=== PATIENT | female | born 1970 | race Caucasian/White ===

== ENCOUNTER 2016-04-03 04:42 | Inpatient (IN) | payer OTHER ==
[~2016-04-03] VITALS: Ht 170.2 cm; Wt 145.2 kg
[~2016-04-03 04:42] MED LIST: LORAZEPAM0.5 M1 PO; NASONEX0.05 MG/Ac NAS; PROTONIX40 M3 PO; ROBITUSSIN W/CO10 ML PO; TESSALON PERLE100 MG PO; TRAMADOL50 MG PO
--- NOTE | 2016-04-03 10:09 | Admission Core Measures ---
Admission Meds I reviewed the following Meds: Current Medications Sig/Sanna Start time Last Medication Dose Stop Time Status Admin Cefazolin Sodium 3,000 MG ONCE 04/03 NR (Kefzol-Ancef Inj) 04/03 2358 Dexamethasone 10 MG ONCE 04/03 NR (Decadron 10MG/Ml 04/03 2358 Sdv) Dextrose/Water 50 ML (Dextrose 5%) Heparin Sodium 5,000 UNIT ONCE 04/03 NR (Porcine) 04/03 2358 Metronidazole 500 MG ONCE 04/03 NR (Flagyl) 04/03 2358 Sodium Chloride 100 ML (Normal Saline 0.9%) Acute Coronary Syndrome Inclusion Criteria ACS Diagnosis No Inpatient Core Measures LDL Reminder: If No, please order W/I first 24hr of stay Congestive Heart Failure Inclusion Criteria CHF Diagnosis No Cerebrovascular accident Inclusion Criteria CVA/TIA Diagnosis No Inpatient Core Measures Bedside Swallow Eval Reminder: If BSE failed, place ST order Antithrombotic Reminder: Order Antithrombotic Medication by end of day 2 Antithrombotic Reminder: Document Reason Antithrombotic Not ordered by end of day 2 AFIB/Flutter Reminder: If Present, add to problem list AFIB/Flutter Reminder: Order Anticoag Medication for pts with AFIB/Flutter Atherosclerosis Reminder: If Present, add to problem list LDL Reminder: If No, please order W/I first 24hr of stay PT Order Reminder: If No, please order Venous thromboembolism Inpatient Core Measures VTE Risk Factors: Age > 40, Obesity, Surgery VTE Prophylaxis Ordered Inpt Mech & Pharm No Mech VTE prophylaxis d/t No contraindications No VTE Pharm Prophylaxis d/t No contraindications Inclusion Criteria - Per Current guidelines, there needs to be overlap - treatment for the first 5 days of Warfarin therapy. - Parenteral Anticoagulation (IV or SC) needs to be - given along with Warfarin therapy. VTE Diagnosis No VTE Type NONE VTE Confirmed by (Test) NONE Problem List As ranked by this Provider includes Assessment & Plan 1. S/P gastric bypass HOME MEDS Home Med List Lorazepam 0.5 MG TABLET 1 TAB PO TID PRN ANXIETY (Reported) Pantoprazole Sodium (Protonix) 40 MG TABLET.DR 1 TAB PO DAILY GERD (Reported)
--- NOTE | 2016-04-03 10:32 | Operative Report ---
Operative/Inv Procedure Report Surgery Date: 04/03/16 Name of Procedure: Laparoscopic Agustin-en-Y gastric bypass and laparoscopic hiatal hernia repair Pre-Operative Diagnosis: Morbid obesity, gastroesophageal reflux Post-Operative Diagnosis: Same Estimated Blood Loss: less than 50ml Surgeon/Securities Teller: MAL [facility]ILLEDA[facility] Anesthesia: general endotracheal tube, block IV Fluids: LR Implants: none Urine Output: n/a Drains: none Specimens: none Complications: none Condition: stable Operative Indication: see admission Hand P Operative/Procedure Note Note: After informed consent and proper identification the patient was taken to the operating room and placed on the operating room table in the supine position Venodyne stockings were applied she underwent a general endotracheal anesthetic. Anesthesia administered a Samia block. The abdomen was then prepped and draped in normal sterile fashion using a completely an Optiview 10 mm trocar and a 0 Stortz laparoscope we entered the abdominal cavity without difficulty dissecting through the muscle layers through the peritoneum into the abdominal cavity. We insufflated with 14 mm of CO2 pressure. Next we placed additional trochars 25 mm trochars in each of the subcostal margins additional 5 mm trocar in the left mid abdomen 12 mm trocar in the right midabdomen and a Hira liver retractor in the upper midline to retract the left lobe of the liver. The upper portion of the stomach and the fat pad were in the chest there is approximately a 2 cm defect at the hiatus. We felt that we should repair this hiatal hernia. We began dissecting using a Sonicision Scalpel Taking down the Gastrohepatic Ligament All the Way up to the Top of the Left Ashley. We dissected underneath the esophagus elevating the esophagus and the right posterior vagus nerve. We took down attachments of the hernia sac all the way up into the chest. We then dissected along the left ashley all the way up to the top of the hiatus. We pulled approximately 3 cm of intra-abdominal esophagus into the abdominal cavity dissecting the adhesions away so that there was no more retraction of the stomach into the chest. We could clearly see the left and right ashley while elevating the esophagus with a retractor. We repaired the ashley with a single [id number] 2-0 Tycron suture and then an interrupted 2-0 Tycron suture. We had anesthesia decompress the stomach with an orogastric tube and then remove the orogastric tube. After approximately a third gastric vein on the lesser curvature we dissected retrogastric and then began to create the pouch using a Endo EDNA purple 60 stapler with seam guard stapling transversely across the stomach and the retrogastric space we dissected up towards the angle of Hiss we fired 2 additional 60 cm staplers without seam guard and one additional 45 stapler to create the pouch anesthesia now placed in Clementine tube in the pouch. We then turned our attention to the greater omentum and retracted it as well as the transverse colon identified the ligament of Treitz. We ran the small bowel 50 cm from the ligament of Treitz and made a window in the mesentery with the Sonicision Scalpel We Stapled across the Bowel Using a 60 Cm Nassar Load Endo EDNA Stapler. We Marked the Proximal Biliopancreatic Limb with 2 10 mm clips Next we divided the greater omentum with the Sonicision Scalpel. We brought the Agustin limb up to the pouch admitting opening of the pouch and in the small bowel approximately 5 cm from the and and performed a side to side him anastomosis between the Agustin limb and the gastric pouch using a Endo EDNA 45 can load stapler make an anastomosis approximately 30 cm long. We had anesthesia pass a Clementine tube across the anastomosis. We sewed the anastomosis closed using a running 23 cm 2-0 Vicryl suture in 2 layers. We tested the anastomosis by clamping the bowel on injecting first air submerged in saline and methylene blue. There was no evidence of a leak. We had anesthesia remove the wall tube. This point we ran the Agustin limb 120 cm and performed a side to side anastomosis between the Agustin limb and the biliopancreatic limb with an Endo EDNA 60 nassar load stapler. We closed the opening by placing 3 retraction sutures of 3-0 silk and then fired a Endo EDNA 60 nassar load stapler across opening were careful not to narrow the proximal small bowel. There is a little bit of bleeding on the staple line for which we placed 210 mm clips. We now closed the mesenteric defect of the jejunojejunostomy with interrupted [id number] 2-0 Tycron sutures. Inspected the abdominal cavity there is no bleeding we placed 1 sponge into the abdominal cavity which was removed the end of the case sponge and instrument counts were correct we removed a Hira liver retractor and all trochars under direct visualization. Patient tolerated the procedure without complications was extubated and taken the recovery room in stable condition Findings: Moderate size hiatal hernia with upper portion of stomach and fat pad in chest, smoothe glistening liver Discharge Disposition: PACU
--- NOTE | 2016-04-03 12:36 | PN- Bariatrics ---
Subjective Subjective: The patient was seen this afternoon postoperatively. She reports the pain is under adequate control and she is without nausea. She denies any chest pain, palpitations, or difficulty breathing. Objective Vital Signs and I&Os Vital signs: Blood pressure 160/70, pulse 76, O2 saturation 94% on room air, temperature 98.2 I's and O's: 2200 ML's in of lactated ringer/due to void/EBL minimal Physical Exam: Gen.: Alert and obvious distress Skin: Warm and dry Cardiac: S1-S2 regular Pulmonary: Bilateral breath sounds are equal and decreased at bases Abdomen: Soft, obese, appropriate incisional tenderness, bowel sounds positive. Port sites are clean, dry, and intact. Extremities: Bilateral lower extremities are warm without calf tenderness or significant edema. Assessment/Plan Assessment/Plan Assessment: [age] female status post laparoscopic gastric bypass. Postoperatively the patient is progressing as expected and her pain was under adequate control. Plan: Bariatric stage I diet until midnight. Then the patient will be kept nothing by mouth for an upper GI in the morning IV hydration Continue current pain regiment 2 doses of postoperative prophylactic antibiotics GI and DVT prophylaxis Out of bed ambulate TRC and patient to continue her home CPAP Follow-up morning laboratory studies Resume home medications Core Measures/Miscellaneous Venous Thromboembolism VTE Risk Factors: Age > 40, Obesity, Surgery VTE Contraindications: No Contraindications VTE Prophylaxis Ordered Inpt: Mech & Pharm VTE Diagnosis: No VTE Type: NONE VTE Confirmed by (Test): NONE Beta Ismael Is Beta Ismael a Home Med? No Antibiotics Is Patient on Antibiotics? Yes If Yes: prophylaxis
[2016-04-03] MEDS ORDERED: HYCET 7.5 MG-3473 ML PO (13:03)
[2016-04-03] MEDS ORDERED: LOVENOX40 MG/0.1 SC (13:05)
--- NOTE | 2016-04-03 13:14 | Patient Discharge Instructions ---
Discharge Instructions General Discharge Information You were seen/treated for: Morbid Obesity You had these procedures: Laparoscopic gastric bypass Watch for these problems: Significantly increased pain, nausea, or temperatures Increased redness or drainage from incisions Chest pain or difficulty breathing No bath, but you may shower: Yes Special Instructions: See printed information booklet Ambulate frequently May use Gas-X for gas pain Diet Recommended Diet: Bariatric Activity Activity Self Limited: Yes Pounds, do NOT lift more than: 10 Acute Coronary Syndrome Inclusion Criteria At DC or during hospital stay patient has or had the following: ACS DIAGNOSIS No Discharge Core Measures Meds if any: Prescribed or Continued at Discharge Meds if any: NOT Prescribed or Continued at Discharge Congestive Heart Failure Inclusion Criteria At DC or during hospital stay patient has or had the following: CHF DIAGNOSIS No Discharge Core Measures Meds if any: Prescribed or Continued at Discharge Meds if any: NOT Prescribed or Continued at Discharge Cerebrovascular accident Inclusion Criteria At DC or during hospital stay patient has or had the following: CVA/TIA Diagnosis No Discharge Core Measures Meds if any: Prescribed or Continued at Discharge Meds if any: NOT Prescribed or Continued at Discharge Venous thromboembolism Inclusion Criteria VTE Diagnosis No VTE Type NONE VTE Confirmed by (Test) NONE Discharge Core Measures - Per Current guidelines, there needs to be overlap - treatment for the first 5 days of Warfarin therapy. - If discharged on Warfarin prior to 5 days of - overlap therapy, the patient will need to be - assessed for post discharge needs including - *Post discharge parental anticoagulation - *Warfarin and/or parental anticoagulation education - *Follow up date to check INR post discharge At least 5 days overlap therapy as Inpatient No Meds if any: Prescribed or Continued at Discharge Note: Overlap Therapy is Warfarin and Anticoagulant Meds if any: NOT Prescribed or Continued at Discharge
--- NOTE | 2016-04-03 13:16 | Surg Short-stay <48hrs Dis Sum ---
Visit Information Visit Dates Admission Date: 04/03/16 Discharge Date: 04/05/16 Surgical Short Stay DC Summary Admission Diagnosis: Morbid obesity Final Diagnosis: Same Procedure(s): Laparoscopic gastric bypass and hiatal hernia repair Summary/Significant Findings: The patient was noted on 04/03/2016. Later that they she is brought to the operating theater and underwent a laparoscopic gastric bypass with hiatal hernia repair. Postoperative the patient progressed as expected, her pain is under adequate control, and she was tolerating a stage I diet without nausea. The patient was discharged with an uneventful hospital course. Condition at Discharge: Stable Discharge Disposition: home or self care Discharge instructions provided to patient/family: Yes Post discharge follow-up plan: Call the office to be seen in one week
[2016-04-03 14:00] VITALS: BP 128/78
--- NOTE | 2016-04-03 16:02 | NUR ---
NURSING NOTE: PT ARRIVED TO FLOOR VIA STRETCHER AT 1351. PT A&O, VSS CHARTED. PT AMULATED AROUND 2NA&B INDEPENDENTLY. 6 DRESING SITES NOTED, 1 SITE IN LUQ HAS SCANT AMOUNT OF BLOODY DRAINAGE. PT EDUCATED ON DIET. LOG AT BEDSIDE. WILL CONTINUE TO MONITOR.
[2016-04-03 16:35] VITALS: BP 118/86
[2016-04-03 20:00] VITALS: BP 120/85
--- NOTE | 2016-04-03 23:04 | NUR ---
ALERT AND ORIENTED X 3. VITAL SIGNS STABLE. PATIENT USING BIPAP. PATIENT AMBULATING WELL AROUND THE FLOOR. MEDICATION GIVEN FOR PAIN DSGS ARE CLEAN, DRY AND INTACT. PATIENT TAUGHT ABOUT INCENTIVE SPIROMETER USE WILL CONTINUE TO MONITOR
[2016-04-04] VITALS: BP 128/88
--- NOTE | 2016-04-04 07:50 | PN- Bariatrics ---
Subjective Subjective: Reports expected gas related pain. Ambulating well. No dizziness. No shortness of breath. She wore her cpap overnight. Currently npo awaiting upper gi study. Voiding well. Not passing flatus yet. Objective Vital Signs and I&Os Vital Signs Date Time Temp Pulse Resp B/P Pulse O2 O2 Flow FiO2 Ox Delivery Rate 04/04 0600 Room Air 04/04 0000 Room Air 04/04 0000 98.0 76 20 128/88 99 Room Air 04/03 2000 96 BIPAP 04/03 2000 74 20 120/85 96 BIPAP 04/03 1808 Room Air Room Air 04/03 1800 96 BIPAP 04/03 1635 98.4 87 18 118/86 99 Room Air 04/03 1600 99 Room Air 04/03 1400 96 Room Air Room Air 04/03 1400 96 Room Air Room Air 04/03 1400 98.0 88 18 128/78 96 Room Air Room Air Intake & Output 04/04 0800 02/ 0000 02/06 1600 /06 0800 04/03 0000 / 1600 Intake Total 1000 135 185 Output Total 950 Balance 1000 -815 185 Intake, IV 1000 125 Intake, Oral 135 60 Output, Urine 950 Patient 320 lb Weight Physical Exam: General - alert & oriented x 3. comfortable. Lungs - clear bilaterally. no w/r/r. Cardiac - s1s2. reg. Abdomen - soft. dressings c/d/i. expected carlos a-incisional tenderness. no drains. Extremities - warm bilaterally. no c/c/e. calves soft and nontender b/l. athrombics in place. Assessment/Plan Assessment/Plan This 45 year old white female with hx morbid obesity, gerd, breanne, anxiety, who is POD#1 s/p lap gastric bypass, hiatal hernia repair currently npo / ivf. f/u upper gi study f/u labs pain control as ordered carlos a-operative antibiotics completed lovenox - dvt ppx lovenox teaching for home oob/ambulation will d/w Core Measures/Miscellaneous Venous Thromboembolism VTE Risk Factors: Age > 40, Obesity, Surgery VTE Contraindications: No Contraindications VTE Prophylaxis Ordered Inpt: Mech & Pharm VTE Diagnosis: No VTE Type: NONE VTE Confirmed by (Test): NONE Beta Ismael Is Beta Ismael a Home Med? No Antibiotics Is Patient on Antibiotics? Yes If Yes: prophylaxis
[2016-04-04 07:57] LABS: ABSOLUTE BASOPHIL COUNT 0 /CUMM (0.0-0.2); ABSOLUTE EOSINOPHIL COUNT 0 /CUMM (0.0-0.7); ABSOLUTE GRANULOCYTE CT 7.7 /CUMM (1.4-6.5); ABSOLUTE LYMPH COUNT 1.6 /CUMM (1.2-3.4); ABSOLUTE MONOCYTE COUNT 0.6 /CUMM (0.10-0.60); BASOPHIL % 0.4 % (0.0-2.0); EOSINOPHIL % 0.2 % (0-5); GRANULOCYTE % 77.8 % (42.2-75.2); HEMATOCRIT 35.5 % (37-47); MEAN CORPUSCULAR HGB 28.9 PG (27.0-31.0); MEAN CORPUSCULAR HGB CONC 33.8 G/DL (33.0-37.0); MEAN CORPUSCULAR VOLUME 85.4 FL (81.0-99.0); MEAN PLATELET VOLUME 8.5 FL (7.4-10.4); PLATELET COUNT 232 /CUMM (130-400); RED BLOOD CELL CT 4.15 /CUMM (4.20-5.40); WHITE BLOOD CELL COUNT 9.9 /CUMM (4.8-10.8)
[2016-04-04 08:09] VITALS: BP 124/70
--- NOTE | 2016-04-04 12:46 | RADIOLOGY REPORT ---
EXAMINATION: FL UPPER GI SERIES CLINICAL INFORMATION: Status post gastric bypass. Followup study. COMPARISON: None. TECHNIQUE: Two AP merchandise adjustment clerk views of the abdomen are obtained. A water-soluble contrast upper GI series with fluoroscopy and spot imaging was performed. The patient ingested water-soluble contrast without difficulty and was evaluated in the upright position. FINDINGS: The preliminary films are unremarkable. There is normal esophageal mucosa and motility. The gastric bypass changes are noted. There is a small gastric pouch. There is immediate emptying into the small bowel. There is no evidence of extravasation or obstruction. FLUOROSCOPY TIME: 36 seconds. IMPRESSION: No evidence of extravasation or obstruction.
[2016-04-04 16:12] VITALS: BP 130/70
--- NOTE | 2016-04-04 23:59 | NUR ---
NURSING NOTE; LATE ENTRY; AROUND 2300 PT CALLED THIS RN INTO ROOM COMPLAINING OF PAIN TO IV SITE. IV INFILTRATED AND PULLED. PT SAID "I DO NOT WANT ANOTHER IV" THIS RN CALLED SURGICAL PA #[id number] AND MADE HIM AWARE AND SURGICAL PA SAID PT SHOULD HAVE IV ACCESS. THIS RN EDUCATED PT ON IMPORTANCE OF IV ACCESS. PT AGREED TO HAVE IV PUT IN. THREE DIFFERENT RNS TRIED TO PUT IV IN. PT REFUSING IV. SURGICAL PA AWARE. NEXT SHIFT RN MADE AWARE. WILL CONTINUE TO MONITOR.
[2016-04-05 00:34] VITALS: BP 127/76
--- NOTE | 2016-04-05 01:02 | NUR ---
PT REPORTED PAIN ACROSS TOP OF CHEST AND DIAPHRAGM. VITALS ARE STABLE, PT DOES NOT APPEAR TO BE IN ANY ACUTE DISTRESS. SHE REPORTS SHE HAS HAD THIS PAIN SINCE HER SURGERY BUT WAS NOT SURE IF SHE HAD MENTIONED IT TO ANYONE. KRIS AVILA MADE AWARE.
--- NOTE | 2016-04-05 06:40 | PN- Bariatrics ---
Subjective Subjective: The patient was seen this morning postoperatively day #2. Reports having is under adequate control and she is tolerating a stage I diet without nausea. She has no other complaints at the current time and is eager to go home later today. Objective Vital Signs and I&Os Vital Signs Date Time Temp Pulse Resp B/P Pulse O2 O2 Flow FiO2 Ox Delivery Rate 04/05 0034 97.2 75 20 127/76 96 Room Air 04/04 1612 97.7 60 20 130/70 95 / 1400 94 Room Air Room Air 04/04 0809 97.6 83 20 124/70 96 Room Air / 0800 96 Room Air Room Air 04/04 0800 96 Room Air Room Air Intake & Output 04/05/ 0000 04/04 1600 04/04/ 0000 / 1600 Intake Total 1150 1070 1000 135 185 Output Total 450 850 950 Balance 958 847 1812 -815 185 Intake, IV 546 396 1832 125 Intake, Oral 350 270 135 60 Output, Urine 450 850 950 Patient 320 lb Weight Physical Exam: Gen.: Alert in obvious distress Skin: Warm and dry Abdomen: Soft, obese, appropriate incisional tenderness, bowel sounds positive. Port sites are clean, dry, and intact without signs of infection. Extremities: Bilateral lower extremities are warm without calf tenderness or significant edema. Assessment/Plan Assessment/Plan Assessment: [age] female status post laparoscopic gastric bypass postoperative day #2. The patient is progressing as expected, her pain is under adequate control, she is tolerating a diet without nausea. Plan: Continue stage I diet Hep-Lock IV fluids Out of bed ambulate GI and DVT prophylaxis Lovenox education Discharge home later today Core Measures/Miscellaneous Venous Thromboembolism VTE Risk Factors: Age > 40, Obesity, Surgery VTE Contraindications: No Contraindications VTE Prophylaxis Ordered Inpt: Mech & Pharm VTE Diagnosis: No VTE Type: NONE VTE Confirmed by (Test): NONE Beta Ismael Is Beta Ismael a Home Med? No Antibiotics Is Patient on Antibiotics? No
--- NOTE | 2016-04-05 07:27 | NUR ---
NURSING NOTE: DISCHARGE INSTRUCTIONS AND PRECRIPTIONS GIVEN WITH VERBAL UNDERSTANDING. PT HAS GOOD UNDSTANDING OF LOVEOX INJ AND ABLE TO DEMONSTRATE GIVING SELF INJ
[2016-04-05 07:48] VITALS: BP 122/78
[2016-04-05 08:40] VITALS: BP 122/78
== END 2016-04-05 09:23 | DRG 403 ==
LOC: ENRESERVDT → ENRESERVTM → CANRESERV → ENPENDDIS 04:42 → 2NB 04:42 → SDA 04:42 → 2NB 13:52
PROVIDERS: Physician Assistant Surgical; ADMIT Surgery
PROC: 0D164ZA Bypass Stomach to Jejunum, Percutaneous Endoscopic Approach (ICD-10-PCS; principal; 2016-04-03)
PROC: 0BQS4ZZ (ICD-10-PCS; 2016-04-03)
PROC: 0BQR4ZZ (ICD-10-PCS; 2016-04-03)
DX: E66.01 Morbid (severe) obesity due to excess calories (principal); K21.9 Gastro-esophageal reflux disease without esophagitis; K44.9 Diaphragmatic hernia without obstruction or gangrene; Z68.43 Body mass index [BMI] 50.0-59.9, adult; I10 Essential (primary) hypertension; E11.9 Type 2 diabetes mellitus without complications
CPT/HCPCS: 2NBP; 74240; 82436; C9399; J0131; J0690; J1100; J1170; J1644; J1650; J1885; J2405; J7042; S5012